=== PATIENT | male | born 1945 | race Caucasian/White ===

== ENCOUNTER 2016-11-25 19:04 | Observation (INO) | payer MEDICARE, OTHER ==
[~2016-11-25] VITALS: Ht 180.3 cm; Wt 82.8 kg
[2016-11-25 19:06] VITALS: BP 153/97; PULSE 69; RESP 16; O2SAT 99
--- NOTE | 2016-11-25 19:13 | ED.REPORT ---
HPI-Chest Pain 40 and Over Date of Service Nov 25, 2016 ED Provider: Viviana Joseph MD This is a 71 year old male with a history of [place] s/p cardiac stent placement presenting to the emergency department complaining of chest pain that began yesterday. Pt reports one episode of sudden onset chest pain while at rest yesterday that resolved within 6 minutes of taking 1 nitroglycerin. Pt experienced another episode today while getting out of bed, also resolved after 1 nitro. Described as left sided pain described as a "burning pressure," with radiation to the left arm at times. Pt had a stress test one week ago. Denies chest pain at this time. Denies cough, fever, chills, nausea, vomiting, abdominal pain, diaphoresis, or radiation of pain. Nursing Notes Stated Complaint: UNSTABLE ANGINA Chief Complaint: Chest Pain Nursing Notes Reviewed: Yes Allergies: Coded Allergies: No Known Allergies (Unverified , 11/25/16) General Time Seen by MD: 19:10 Chief Complaint Chest pain Hx Obtained From: Patient Arrived By: Walk-in Sudden in Onset?: Yes Onset Occurred: Yesterday Symptom Duration: Since onset Severity: Current: No pain currently Severity: Maximum: Moderate Pertinent Negative: Pt denies other symptoms Recent Healthcare: No recent hospitalization, Recent doctor visit Similar Sx Previous: No Past Medical History Past Medical History TX Past Surgical History Cardiac stents in 2013 Ambulatory Status Independent Review of Systems Constitutional: Denies: Chills, Fever Respiratory: Denies: Parox nocturnal dyspnea, Shortness of breath Cardiovascular: Reports: Chest pain GI: Denies: Abdominal pain, Constipation, Diarrhea, Nausea, Vomiting Musculoskeletal: Denies: Back pain Skin: Denies Diaphoresis Complete sys rev & neg: except as marked. Physical Exam Initial Vital Signs Vital Signs (First) Date Time Temp Pulse Resp B/P Pulse Ox O2 Delivery O2 Flow Rate FiO2 11/25/16 19:06 37.0 69 16 153/97 99 Room Air Initial VS: Reviewed Head / Eyes: Atraumatic, Normocephalic, PERRL ENT: Mucous membranes moist, Conjunctiva normal, No scleral icterus Neck: Supple, Non-tender, Full range of motion Extremities: Vascular intact, Neuro intact, No swelling, No tenderness Skin: Warm, Dry, No cyanosis Neurologic: Alert, Oriented, Nonfocal Psychiatric: Mood/affect normal, Behavior normal, Normal thought content General/Constitutional: Awake, Alert Respiratory / Chest: Breath sounds NL, Breath sounds = bilat, No respiratory distress, No rales, No rhonchi, No wheezing, No stridor, No chest tenderness Cardiovascular: Heart rate NL, No rubs Heart Sounds / Murmur: Positive: Diastolic murmur present. (III/) Abdomen: Soft, Non-tender, McBurney's non-tender, No guarding, No rebound, BS normoactive, No distention, No hernia, No palpable mass Interpretation & Diagnostics Interpretation & Diagnostics: chest x-ray IMPRESSION: No acute cardiopulmonary disease. Dictated by: Faizan Lobo M.D. on 11/25/2016 at 20:09 Approved by: Faizan Lobo M.D. on 11/25/2016 at 20:10 Lab Results Interpretation Result Diagram: 11/25/16192611/25/161926 Test 11/25/16 19:27 11/25/16 19:50 White Blood Count 16.6th/mm3 (3.8-10.1) Red Blood Count 4.42mil/mm3 (4.40-5.80) Hemoglobin 14.0g/dL (13.8-17.2) Hematocrit 39.9% (41.0-50.0) Mean Corpuscular Volume 90.3fL (81-100) Mean Corpuscular Hemoglobin 31.7pg (27.0-35.0) Mean Corpuscular Hemoglobin Concent 35.1% (32.0-37.0) Red Cell Distribution Width 12.5% (12.3-15.4) Platelet Count 136bil/L (150-400) Neutrophils (%) (Auto) 36.8% (40-74) Lymphocytes (%) (Auto) 55.5% (14-46) Monocytes (%) (Auto) 6.6% (4-12) Eosinophils (%) (Auto) 0.7% (0-5) Basophils (%) (Auto) 0.2% (0-3) Sodium Level 140mEq/L (134-144) Potassium Level 3.9mEq/L (3.5-5.2) Chloride Level 102mEq/L (97-108) Carbon Dioxide Level 24mmol/L (18-29) Blood Urea Nitrogen 20mg/dL (8-27) Creatinine 0.71mg/dL (0.76-1.27) Estimat Glomerular Filtration Rate 116mL/min (>59) Glucose Level 87mg/dL (60-99) Calcium Level 8.7mg/dL (8.5-10.1) Magnesium Level 2.1mg/dL (1.6-2.6) Total Bilirubin 0.5mg/dL (0.0-1.2) Aspartate Amino Transf (AST/SGOT) 28U/L (0-50) Alanine Aminotransferase (ALT/SGPT) 34U/L (0-44) Alkaline Phosphatase 53U/L (25-160) Troponin T < 0.010ug/L (0.0-0.011) Pro-B-Type Natriuretic Peptide 582.2pg/mL (0-376) Total Protein 6.7g/dL (6.4-8.4) Albumin 4.2g/dL (3.4-5.0) Hold Purple Top Tube Received (Received) Hold Blue Top Tube Received (Received) Hold Tracy Top Tube Received (Received) Hold Jones Top Tube Received (Received) ECG Interpretation ECG Interpretation: NSR at a rate of 67 T-wave inversion in AVR Time: 19:27 Interpreted by: ED physician Re-Eval/Medical Decision Med Decision/Clinical Course 71-year-old male with past medical history of TX status post stenting here with chest pain which was relieved by nitroglycerin both yesterday and today. Differential diagnosis includes but is not limited to ST elevation TX versus non -ST elevation TX versus esophageal spasm versus pneumonia versus pleural effusion versus PE versus aortic dissection. At this time, exam is not consistent with PE or aortic dissection, and I do not feel he requires workup for these diagnoses. Exam is most consistent with unstable angina. Initial troponin is negative. Initial labs are remarkable for leukocytosis. EKG does not show any signs of ischemia. Given patient's history of TX, I have admitted him to the hospital for formal ACS rule out. He is aware and amenable to plan. Consultation : Referral / Consult Name: Newton Rey MD Consulted With: Hospitalist Call Returned at: 20:29 Plastic Extruding Machine Operator: Accepts admit Counseled Regarding: Diagnosis, Lab results, Need for follow-up, Need for admission Discharge & Departure Primary Impression: Chest pain Chest pain type: unspecified Qualified Code: R07.9 - Chest pain, unspecified Disposition: ADMITTED TO HOSPITAL Discharge Condition All VS Reviewed: Yes Condition: Stable Referrals: Anna Cruz (PCP) Scribe Attestation Portions of this note were transcribed by Violet Deutsch. I, Dr. Joseph personally performed the history, physical exam and medical decision-making; I reviewed and confirmed the accuracy of the information in the transcribed note. Signed by: Violet Deutsch. 11/25/2016, 23:00. Viviana Joseph MD Nov 25, 2016 19:13 VIOLET DEUTSCH Nov 25, 2016 19:14
[2016-11-25 19:44] LABS: BASOPHILS % (AUTO) 0.2 % (0-3)
[2016-11-25 19:57] LABS: EOSINOPHILS % (AUTO) 0.7 % (0-5); MONOCYTES % (AUTO) 6.6 % (4-12); Mean Corpuscular Hemoglobin 31.7 pg (27.0-35.0); Mean Corpuscular Volume 90.3 fL (81-100); NEUTROPHILS % (AUTO) 36.8 % (40-74); Platelet Count 136 bil/L (150-400)
[2016-11-25 20:10] LABS: TROPONIN T < 0.010 ug/L (0.0-0.011)
[2016-11-25 20:12] LABS: Magnesium 2.1 mg/dL (1.6-2.6)
--- NOTE | 2016-11-25 20:15 | DRSVH ---
PROCEDURE: X-RAY CHEST ONE VIEW, PORTABLE ([id number]) INDICATIONS: 71 year-old male with chest pain. TECHNIQUE: One view of the chest was acquired. COMPARISON: None. FINDINGS: Surgical changes and devices: None. Lungs and pleura: No pleural effusions or pneumothorax. Lungs are clear. Mediastinum: Mediastinal contours appear normal. Heart size is normal given AP technique. Bones and chest wall: No suspicious bony lesions. Overlying soft tissues appear unremarkable. IMPRESSION: No acute cardiopulmonary disease. Dictated by: Faizan Lobo M.D. on 11/25/2016 at 20:09 Approved by: Faizan Lobo M.D. on 11/25/2016 at 20:10
[2016-11-25] MEDS ORDERED: Alum-Mag Hydrox-Simeth 30 mL Suspension PO PRN ×2 (21:30→22:05)
[2016-11-25] MEDS ORDERED: Ondansetron 2 mg/mL 2 mL Inj IVPUSH PRN ×2 (21:30→22:05)
[2016-11-25 21:54] VITALS: BP 128/71; PULSE 74; RESP 18; O2SAT 97
--- NOTE | 2016-11-25 22:03 | PCM.HPMED ---
Subjective Date of Service Nov 25, 2016 Primary Provider: Admitting Physician: Primary Care Physician: Anna Cruz Attending Physician: Admit Status: From the Emergency Department Chief Complaint: Chest pain History of Present Illness: This is a pleasant 71 Y/O M with a history of [place] s/p cardiac stent placement in [place] of 1st diagonal branch, hx of unstable angina at rest with nitro at home, hx of HTN on Carvedilol, and lisinopril, and hyperlipidemia on Atorvastatin, who presented to the ED with complaint of sudden onset recurring burning/ pressure 2-3 out of 10 chest pain that started about 3 weeks ago. This prompted patient to make appointment with franchise sales manager. Patient had exercise stress test done on 11/23/2016 in preparation for his scheduled visit visit with Dr. Nix on December 06 2016 which was found to be abnormal. Yesterday patient states he had recurrence of this chest pain at rest around noon and took one nitroglycerin with relief of pain after 6 minutes. Again today around 5:00 patient had same chest pain and took one nitroglycerin and pain went away after 5 minutes. Pain is located on the left pectoral region radiating to the left nipple and left arm. Patient states that he has not been diaphoretic but he was 3 weeks ago when just been started. Patient states he has increased stressors in his life of late and has recently moved here from [facility]. Patient reports sore throat for the past 2 days. Denies chest pain at this time. Denies cough, fever, chills, nausea, vomiting, abdominal pain, diaphoresis, or radiation of pain. Patient's former franchise sales manager was Dr. Carbone in [place]. Note the patient received nitroglycerin and aspirin and is currently in no pain. Vital signs in ED: Temperature 37.0, pulse 69, blood pressure 153/97, respiratory rate 16, oxygen 95% room air. Hemogram: WBCs 16.6, hemoglobin 14.0, hematocrit 39.9, platelet count 136, neutrophils 36.8, lymphocytes 55.5, Chemistry panel: Sodium 140, calcium 3.9, chloride 102, CO2 24, BUN 20, creatinine 0.71, glucose 87, make 0.1, calcium 8.7, pro BNP 582, troponin 0.010. Chest x-ray showed no acute cardiopulmonary process Review of Systems: A comprehensive review of systems was conducted and was negative except as mentioned in history of present illness. Allergies Coded Allergies: No Known Allergies (Unverified , 11/25/16) Home Medications Aspirin 81 mg daily Atorvastatin 40 mg daily Carvedilol 6.25 mg twice per day Lisinopril 5 mg daily Nitroglycerin 0.4 mg when necessary Pantoprazole 40 mg daily Jeison 10 mg drops per eyes for macular degeneration PMH History of WI in 2013 status post stent placement GERD Macular degeneration Hypertension Hyperlipidemia Surgical History Cardiac stent 2013 Family History Coronary artery disease in mother and father father at age 43 [place] Artery disease in grandfather who at age 43 from [place] History of cardiomyopathy in mother, grandmother, sister, brother, nephew Social History Hx Alcohol Use: Yes (drinks 2-3 beers per week each 5.1% by volume) Hx Substance Use: No Hx Tobacco Use: No Smoking Status: Never Smoker Exam Vital Signs Vital Sign - Last Date Time Temp Pulse Resp B/P Pulse Ox O2 Delivery O2 Flow Rate FiO2 11/25/16 19:06 37.0 69 16 153/97 99 Room Air Exam General: Acute alert oriented 3 no acute distress speaking in full sentences resting comfortably in bed HEENT: NC/AT, PERRLA, EOMI, neck supple, visible jugular venous pulse on the right, nontender no masses no thyromegaly Lungs: Clear bilaterally O cummings Heart: Regular rate and rhythm no murmur Abdomen: Soft nontender no organomegaly no rebound no guarding Extremities: Pulses symmetric bilaterally upper/lower extremity Neurologic: Cranial nerves II through XII grossly intact, Skin: Warm and dry Psychiatric: Mood and affect are congruent Lab and Diagnostics Result Diagram: 11/25/16192611/25/161926 X-Rays, CTs and MRIs Date of Service: 11/25/161910 PROCEDURE: X-RAY CHEST ONE VIEW, PORTABLE ([id number]) INDICATIONS: 71 year-old male with chest pain. TECHNIQUE: One view of the chest was acquired. COMPARISON: None. Surgical changes and devices: None. Lungs and pleura: No pleural effusions or pneumothorax. Lungs are clear. Mediastinum: Mediastinal contours appear normal. Heart size is normal given AP technique. Bones and chest wall: No suspicious bony lesions. Overlying soft tissues appear unremarkable. IMPRESSION: No acute cardiopulmonary disease. Dictated by: Faizan Lobo M.D. on 11/25/2016 at 20:09 Approved by: Faizan Lobo M.D. on 11/25/2016 at 20:10 12-lead ECG Normal sinus rhythm rate 67, with T-wave inversion in aVR Cardiac Echo Impressions PROCEDURE: 1 DAY TREADMILL STRESS TEST IMPRESSION: Abnormal study consistent with prior infarction and mild cipriano- infarct ischemia. Good exercise capacity overall with no ECG evidence of ischemia. 1) Mostly fixed defects in the apex and basal to mid lateral wall consistent with prior infarction and mild cipriano-infarct ischemia. Summed stress score is 2. 2) Mildly reduced systolic function with EF 45%. Mildly hypokinesis of the lateral wall and apex. 3) No ECG changes suggestive of ischemia. Occasional premature ventricular ectopy during rest, stress, and recovery. 4) Equivocal chest pain with exercise. 5) Excellent exercise capacity (10.1 METs achieved, KATHE -38%). Target heart rate achieved. Appropriate hemodynamic response to exercise. 6) No prior stress test available for comparison. Dictated by: Maximo Tyler M.D. on 11/23/2016 at 14:59 Approved by: Maximo Tyler M.D. on 11/23/2016 at 15:06 Dictated by: Maximo Tyler M.D. on 11/23/2016 at 15:44 Approved by: Maximo Tyler M.D. on 11/23/2016 at 15:44 CORRECTION: I corrected the wall motion in the Left ventricular function segment. Maximo Tyler MD Report status: Signed with Addenda REPORT#: [id number] Assessment & Plan This is a pleasant 71 Y/O M with a history of [place] s/p cardiac stent placement in [place] of 1st diagonal branch, hx of unstable angina at rest with nitro at home, hx of HTN on Carvedilol, and lisinopril, and hyperlipidemia on Atorvastatin, who presented to the ED with complaint of sudden onset recurring burning/ pressure 2-3 out of 10 chest pain that started occurring at rest about 3 weeks ago. Patient had exercise stress test done on 11/23/2016 was found to be abnormal. He was admitted for acute coronary syndrome rule out. # Acute chest pain, rule out acute coronary syndrome/W[place], Present on Admission, active -Patient has history of prior WI in 2013 status post stent. -His primary franchise sales manager is Dr. Guerra and has appointment on 12/06/2016 -Admitted for observation and further workup -EKG, normal sinus rhythm with a rate of 67, T-wave inversion in aVR -Troponin I 0.010 - BNP - Chest x-ray showed no acute cardiopulmonary process -Stress testing done on 11/23/2016 showed: Abnormal study consistent with prior infarction and mild cipriano-infarct ischemia. Good exercise capacity overall with no ECG evidence of ischemia. 1) Mostly fixed defects in the apex and basal to mid lateral wall consistent with prior infarction and mild cipriano-infarct ischemia. Summed stress score is 2. Mildly reduced systolic function with EF 45 %. Mildly hypokinesis of the lateral wall and apex. -Nothing by mouth tonight pending possible coronary cath in the a.m. -Troponin I X 3, CPK-MB -O2 Sats keep > 94% -IV fluids as needed -We will continue carvedilol 6.25 mg twice per day -Continue the Cipro 5 mg daily -Continue home Atorvastatin grams daily -Morphine for pain control -Nitro SL, Nitro [place], Nitro Paste (PRN) -Aspirin 325mg -Will hold off on starting Plavix given possible catheter procedure tomorrow -Will start Unfractionated Heparin IV if patient continues to complain of chest pain (Protamine for reversal if needed) -Continuous Cardiac Monitoring/BP monitoring -Cardio Consult (in AM) -Labs (Lipid Panel, CBC, CMP, PT/PTT/INR) # Leukocytosis, present on admission, chronicity unknown, active -WBCs 16.6, hemoglobin 14.0, hematocrit 39.9, platelet count 136, neutrophils 36.8, lymphocytes 55.5, #Thrombocytopenia, present on admission, chronicity unknown - Platelets 136 Chronic problems GERD -Continue pantoprazole 40 mg daily Macular degeneration -Continue Avastin 10 mg drops in eye daily Hypertension -Continue carvedilol 6.25 mg twice a day -Genu lisinopril as stated above Hyperlipidemia -Atorvastatin as stated above Disposition: Admitted to in patient service with expected length of stay greater than 2 days, secondary to severity of presenting symptoms, treatment plan, complexity of clinical work up, and risk of adverse events. PCP: Etta Jaime CODE STATUS: Full code CT/PE prophylaxis: SCDs and secondary to pending heart catheterization procedure in a.m. Pain Evaluation: Adequate Pain Control VTE Prophylaxis: Sub-Q Heparin (Unfractionated) Resuscitation Status: CPR: Attempt Resuscitation Attending Statement The patient was seen and examined together with Dr. Orozco on 11/25 and I agree with the history, exam and plan as outlined in the note above. Dougie Orozco DO Nov 25, 2016 21:02 Newton Rey MD Nov 26, 2016 02:50
[2016-11-25] MEDS ORDERED: Senna-Docusate 8.6-50 mg Tablet PO PRN (22:05)
[2016-11-25] MEDS ORDERED: Polyethylene Glycol (PEG) 17 Gm Powder PO PRN (22:05)
[2016-11-25] MEDS ORDERED: Atropine 1 mg/10 mL (Code) Syringe IVPUSH PRN (22:05)
[2016-11-25 23:04] LABS: Creatine Kinase 115 U/L (21-232)
[2016-11-25] MEDS ORDERED: LISI-571 PO (23:14)
[2016-11-25] MEDS ORDERED: ASPI81TA3 PO (23:14)
[2016-11-25] MEDS ORDERED: CARV6.252 PO (23:14)
[2016-11-25] MEDS ORDERED: NITR0.4T6 SL (23:14)
[2016-11-25] MEDS ORDERED: ATOR20TA PO (23:14)
[2016-11-25] MEDS ORDERED: PANT20TA2 PO (23:14)
[2016-11-25] MEDS: 0.9% Sodium Chloride 1,000 ML IV SCH (23:40)
[2016-11-25] MEDS: Sodium Chloride LOK Flush 10 mL Syringe IVFLUSH SCH ×2 (23:48→23:49)
[2016-11-26] VITALS (17 sets, daily range): BP systolic 102–132; BP diastolic 56–79; PULSE 51–117; RESP 8–20; O2SAT 93–99
[2016-11-26 01:31] LABS: APPEARANCE,URINE CLEAR (CLEAR,HAZY); COLOR,URINE YELLOW (YELLOW); OCCULT BLOOD,URINE NEGATIVE (NEGATIVE); PH,URINE 5.5 (5.0-8.0); UROBILINOGEN,URINE NORMAL (NORMAL)
[2016-11-26 02:36] LABS: BASOPHILS % (AUTO) 0.1 % (0-3); EOSINOPHILS % (AUTO) 1.2 % (0-5); MONOCYTES % (AUTO) 6.1 % (4-12); Mean Corpuscular Hemoglobin 31.7 pg (27.0-35.0); Mean Corpuscular Volume 90.6 fL (81-100); NEUTROPHILS % (AUTO) 29.2 % (40-74); Platelet Count 123 bil/L (150-400)
[2016-11-26 03:30] LABS: Creatine Kinase 83 U/L (21-232)
[2016-11-26 03:48] LABS: Magnesium 2.1 mg/dL (1.6-2.6)
--- NOTE | 2016-11-26 06:11 | NUR ---
Admit/Plan Patient admitted to floor from ED at 2145. Came to ED with complaints of chest pain and shortness of breath. Patient has history of NH and stent placement. Was given Asprin and Nitro in ED, which alleviated symptoms. Patient to be observed over night. Tele: SR 64 with occasional PVC's. Troponin negative. Patient NPO status pending plan. Sat's high 90's on RA. Has had no complaints of chest pain this shift. NS running at 80.
--- NOTE | 2016-11-26 06:28 | NUR ---
EKG preformed bedside at 0500
[2016-11-26] MEDS: 0.9% Sodium Chloride 1,000 ML IV SCH (10:34)
--- NOTE | 2016-11-26 11:13 | NUR ---
Social Work: Initial Assessment D: Per EMR review, pt is a 71 year old male admitted for chest pain resolved. Pt is Medicare with [employer]. PCP is Anna Cruz, SOL. NOK is Jose Shankar, paula son, . Advanced directives and DPOA ppw not completed- Information provided to pt by MERCHANDISER RETAIL REPRESENTATIVE. Readmit score not entered at this time. MERCHANDISER RETAIL REPRESENTATIVE met with pt at bedside. Sw role explained. See initial assessment. Pt lives in [facility] with his s/o. 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 Pt's is currently on hospice and requires total care including feeding. Pt is eager to get home to help care for her. Pt states that they live in a single-story ADA compliant home which they recently built. Pt and s/o moved to [facility] from [place] several months ago to be closer to s/o's family. Pt states he has no concerns about discharge home and that his s/o's daughter or son will transport him home when ready. MERCHANDISER RETAIL REPRESENTATIVE provided pt with senior resource guide for reference as he and s/o are new to [facility]. A: Pt who is I at baseline. P: Anticipate pt to discharge home via POV and no sw needs; MERCHANDISER RETAIL REPRESENTATIVE to continue to follow and assist if needs arise. BRETT Gomez Addendum: 11/26/16 at 1118 by FEROZ PINA SS Amended: Links added.
--- NOTE | 2016-11-26 13:21 | NUR ---
GEE signed, copy of FLYNN and copy of Medicare self administered drugs form given to pt.
[2016-11-26] MEDS ORDERED: Heparin 1,000 Units/500 mL NS Premix IV ONE (13:41)
[2016-11-26] MEDS ORDERED: Heparin 5,000 Units/500 mL NS Premix IV ONE (13:41)
[2016-11-26] MEDS ORDERED: Nitroglycerin 50,000 mcg/250 mL D5W Premix IV ONE (13:41)
[2016-11-26] MEDS ORDERED: Heparin 1,000 Unit/mL 10 mL Inj ONE (13:42)
--- NOTE | 2016-11-26 13:56 | NUR ---
off floor pt transported to shop laborer on bed by shop laborer RN. report given to KAREN
--- NOTE | 2016-11-26 14:06 | PCM.CHPCAR ---
Consult Subjective Date of service Nov 26, 2016 Date of admit Nov 25, 2016 at 21:07 Provider Requesting Consult Requesting Provider: Javi Mcdowell Primary Care Physician Primary Care Provider: Anna Cruz Chief Complaint Chest pain/pressure History of Present Illness Julio Salcido is a 71 year old male with past medical history significant for IN x 1 with subsequent stent placement in October of 2013, GERD, and hyperlipidemia who present with chest pain and pressure. Patient recently removed from [facility]. 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 He notes that over the past few months she has had frequent anginal symptoms. These episodes are normally brought on by emotional or physical stressors. Over the last month he has been having multiple episodes per week that have increased in intensity. Due to this he had called to make an appointment was scheduled cardiology. He was asked to have a stress test prior to appointment which she completed on 11/23/16 which was found to be abnormal. Patient's anginal symptoms are described as a left chest pain and pressure that occasionally will radiate to the left arm. It is sometimes associated with diaphoresis but he denies any shortness of breath, nausea, vomiting, palpitations. Patient has been compliant with medications and had a echocardiogram done approximately a year ago which she states was normal. EKG on admission showed nonspecific T-wave changes but no ST changes. Troponins have been negative thus far. Review of Systems Review of Systems A comprehensive review of systems was conducted and was negative except as mentioned in history of present illness. PMH Past Medical History # History of IN in 2013 # CAD status post stent placement in 2013 # Hypertension # Hyperlipidemia # GERD # Macular degeneration Past Surgical History Cardiac stent 2013 Bedside Blood Glucose: 118 Scheduled Aspirin Chew (Aspirin Chew) 81 Mg Chew 81 MG PO DAILY (Reported) Atorvastatin (Lipitor) 20 Mg Tablet 20 MG PO DAILY (Reported) Carvedilol (Carvedilol) 6.25 Mg Tablet 6.25 MG PO BID (Reported) Lisinopril (Lisinopril) 5 Mg Tablet 5 MG PO DAILY (Reported) Pantoprazole DR (Pantoprazole DR) 20 Mg Tablet.dr 20 MG PO DAILY (Reported) Miscellaneous Medications Nitroglycerin SL (Nitroglycerin SL) 0.4 Mg Tab.subl 0.4 MG SL (Reported) Current Inpatient Medications Current Medications Nitroglycerin 0.4 mg Q5MIN PRN SL Last administered on 11/25/16 19:41; Admin Dose 0.4 MG; Start 11/25/16 at 19:15; Stop 11/25/16 at 22:23; Status DC Al Hydrox/Mg Hydrox/Simethicone 30 ml Q6 PRN PO; Start 11/25/16 at 21:30; Status Cancel Ondansetron HCl Dose range: 4 mg to 8 mg Q4H PRN IVPUSH; Start 11/25/16 at 21:30 ; Status Cancel Acetaminophen 975 mg Q6H PRN PO; Start 11/25/16 at 21:30; Status Cancel Sodium Chloride 10 ml 10 ml SRAVANTHI IVFLUSH Last administered on 11/25/16 23:49; Admin Dose 10 ML; Start 11/26/16 at 00:30 Sodium Chloride 1,000 ml @ 80 mls/hr [id number] IV Last administered on 11/25/16 23:40; Admin Dose 80 MLS/HR; Start 11/25/16 at 22:04 Aspirin 325 mg DAILY PO; Start 11/26/16 at 08:30 Al Hydrox/Mg Hydrox/Simethicone 30 ml Q6H PRN PO; Start 11/25/16 at 22:05 Ondansetron HCl 4-8 mg prn nausea Q4H PRN IVPUSH; Start 11/25/16 at 22:05 Senna 1 tablet BID PRN PO; Start 11/25/16 at 22:05 Polyethylene Glycol 17 gm DAILY PRN PO; Start 11/25/16 at 22:05 Acetaminophen 325 mg Q6H PRN PO Last administered on 11/26/16 09:25; Admin Dose 325 MG; Start 11/25/16 at 22:05 Nitroglycerin 0.4 mg Q5MIN PRN SL; Start 11/25/16 at 22:05 Morphine Sulfate 1-5 mg prn pain not relie... Q5M PRN IVPUSH; Start 11/25/16 at 22:05 Atropine Sulfate PRN Q5MIN PRN IVPUSH; Start 11/25/16 at 22:05 Allergies: Coded Allergies: No Known Allergies (Unverified , 11/25/16) Family History Family History Father and paternal grandfather at age 43 from [place] Mother, maternal grandmother, sister, brother, and nephew have cardiomyopathy Social History Hx Alcohol Use: NoHx Substance Use: NoHx Tobacco Use: No Smoking Status: Never Smoker Exam Vital Signs Vital Sign - Last Date Time Temp Pulse Resp B/P Pulse Ox O2 Delivery O2 Flow Rate FiO2 11/26/16 08:36 36.7 65 20 129/79 97 Room Air Intake and Output 11/25/16 11/25/16 11/26/16 Cumulative From/Thru 14:59 22:59 06:59 11/25/16 19:06 - 11/26/16 06:22 Intake Total 528 ml 528 ml Balance 528 ml 528 ml IV Total 528 ml 528 ml Objective General: No acute distress, well-developed, well-nourished, appropriately interactive HEENT: Normocephalic, atraumatic. External ears without defect. Pupils equal, round, and reactive to light and accommodation. Anicteric sclerae, moist conjunctivae, and no lid lag. Oropharynx free of erythema and cobble stoning with moist mucosa. Neck: Supple with full range of motion. No jugular venous distension. No bruits. No lymphadenopathy or thyromegaly. Cardiovascular: Regular rate and rhythm with no murmurs, rubs, or gallops appreciated Pulmonary: Clear to auscultation bilaterally with no crackles, wheezes, or rhonchi. Normal respiratory effort with no use of accessory muscles. Abdomen: Bowel tones present. Soft, nontender, nondistended. No hepatosplenomegaly or masses appreciated. Extremities: No clubbing, cyanosis, edema, or lymphadenopathy appreciated. Skin: Normal temperature, turgor, and texture; no rash, ulcers, or subcutaneous nodules appreciated. Neurological: Cranial nerves grossly intact. Normal muscle strength, tone, and bulk. Reflexes, coordination, and sensory function within normal limits. No known gait impairment. Psychiatric: Normal mood and affect. Alert and oriented to person, place, and time. Lab and Diagnostics Labs Troponin <0.010 and 0.010 since admission Result Diagram: 11/26/1621911/26/16219 X-Rays, CTs and MRIs X-RAY CHEST ONE VIEW, PORTABLE IMPRESSION: No acute cardiopulmonary disease. Dictated by: Faizan Lobo M.D. on 11/25/2016 at 20:09 Approved by: Faizan Lobo M.D. on 11/25/2016 at 20:10 12-lead ECG NSR with nonspecific T wave changes Assessment & Plan Assessment Julio Salcido is a 71 year old male with past medical history significant for IN x 1 with subsequent stent placement in October of 2013, GERD, and hyperlipidemia who present with chest pain and pressure. # Unstable angina: Patient presents with typical chest pain that has become more frequent over the last month. Chest pain resolved with nitro. Troponins have been negative since admission. Risk factors include prior IN with stent in 10/2013, family history, and hyperlipidemia. Stress test on 11/23/16 was abnormal with partially reversible in lateral and apical howell consistent with prior infarction with mild ischeima. Recommend to proceed with cardiac catheterization today to further evaluate. Plan: - Aspirin 81 mg daily. - Atorvastatin 40 mg daily. - Carvedilol 6.25 mg BID. - Lisinopril 5 mg daily. - Cardiac catheterization today. # CAD s/p prior diagonal artery stent: obtaining records from [place], [place] to determine location of stent # Hyperlipidemia: treatment as above. # Hypertension: treatment as above. # GERD: well controlled on pantoprazole at home. - Continue pantoprazole. Pain Evaluation: Adequate Pain Control VTE Mechanical Devices: Intermittant Pneumatic CD Resuscitation Status: CPR: Attempt Resuscitation Attending Statement I saw, examined, and evaluated the patient with Dr. Dante Noland on 11/26/2016 and agree with the note as above. DANTE NOLAND DO Nov 26, 2016 11:19 Maximo Tyler MD Nov 26, 2016 15:31
[2016-11-26] MEDS ORDERED: fentaNYL-PF 50 mCg/mL 2 mL Inj ONE (14:16)
[2016-11-26] MEDS ORDERED: Adenosine Inj 20 ML IV ONE (14:45)
[2016-11-26] MEDS ORDERED: 0.9% Sodium Chloride 50 ML ONE (14:46)
[2016-11-26] MEDS ORDERED: 0.9% Sodium Chloride 1,000 ML IV PRN (15:27)
[2016-11-26] MEDS ORDERED: 0.9% Sodium Chloride 250 ML IV PRN (15:27)
[2016-11-26] MEDS ORDERED: Atropine 1 mg/10 mL (Code) Syringe IVPUSH PRN (15:30)
--- NOTE | 2016-11-26 15:38 | PCM.CVCATH ---
Cardiac Cath Report Date of Service Nov 26, 2016 Primary Indication Unstable angina, abnormal stress test Procedure coronary angiography, left heart cath Vascular Access Right radial artery using 6 Fr sheath, closure with TR band. Diagnostic Catheters Left main: [place] 4.5, 5 Fr RCA: [place] 4.5, 5 Fr Procedure Details Coronary angiography details: The patient was brought to the cardiac catheterization lab in the fasting state. Patient was laid supine on the cardiac catheterization table and the right forearm was prepped and draped in the usual sterile fashion. One percent Xylocaine was infiltrated over the right radial artery. Vascular access was then achieved under ultrasound guidance. Guide wire was used to advance the catheter through the sheath and up into aortic sinuses. After coronary angiography was completed, guide wire was advanced through the catheter ahead of the tip of the catheter and the guide wire along with the catheter were pulled together out of the sheath. Medications/Fluoro Time Medications/contrast/fluoro administered: see interventional cardiology report Findings 1) Coronary angiography: Right dominance a. Left main is angiographically normal b. LAD is normal caliber with 60% tubular stenosis around first large caliber diagonal artery. The large caliber diagonal has a proximal patent stent with mild in-stent restenosis. c. LCx is normal caliber with minimal luminal irregularities d. RCA is normal caliber with mild luminal irregularities 2) Left Heart catheterization: a. LVEDP is mildly elevated at 20 mmHg. b. No significant transaortic gradient on catheter pull-back. Complications There were no periprocedural complications identified. Summary Moderate disease in the LAD. Likely non-significant but I referred the patient to interventional cardiology for FFR of the LAD. Unfortunately, the guide catheter could not engage the left main properly and the FFR could not be done. Recommendations Aggressive medical management of coronary artery disease (aspirin, high intensity statin, beta-blockers, EDWINA-I, and isosorbide mononitrate) Maximo Tyler MD Nov 26, 2016 15:38
--- NOTE | 2016-11-26 15:44 | CS94 ---
[address] [address] DIAGNOSTIC CARDIAC CATHETERIZATION PATIENT: IRMA SHEIKH : 1945 MR#: [id number] ADMIT: 11/25/2016 JOB ID: [id number] SERVICE DATE: 11/26/2016 PATIENT PROFILE: The patient is a 71 years old male who presented with chest discomfort. PROCEDURE: Unsuccessful attempt at fractional flow reserve to the left anterior descending. VASCULAR CLOSURE DEVICE: None. COMPLICATIONS: None. METHOD: Following diagnostic coronary angiogram performed by Dr. Tyler, the patient was informed about FFR procedure. Attempts to engage the left coronary ostium with JL4, JL5, AL1, CLS4 and IL4 guides were unsuccessful. The procedure was terminated. Following sheath removal, hemostasis was achieved by manual compression. The patient tolerated procedure well. He was transferred to [facility] in good condition. RESULTS: Unsuccessful attempt at fractional flow reserve from the radial approach due to unable to find a guide that properly seated into the left coronary ostium. SHERMAN
[2016-11-26] MEDS: Sodium Chloride LOK Flush 10 mL Syringe IVFLUSH SCH ×2 (16:30→23:56)
--- NOTE | 2016-11-26 17:24 | PCM.PNMED ---
Subjective Date of Service Nov 26, 2016 Subjective denies any new issues/complaints. no further CP since admit Exam Vital Signs Vital Sign - Last Date Time Temp Pulse Resp B/P Pulse Ox O2 Delivery O2 Flow Rate FiO2 11/26/16 16:30 60 16 107/56 98 Room Air 11/26/16 13:25 36.6 Intake and Output 11/25/16 11/25/16 11/26/16 Cumulative From/Thru 15:00 23:00 07:00 11/25/16 19:06 - 11/26/16 06:22 Intake Total 528 ml 528 ml Balance 528 ml 528 ml IV Total 528 ml 528 ml General: Alert, Cooperative, No Acute Distress Eyes: Scleral Anicteric Mouth: Mucous Membr Moist/[place] Neck: Supple Chest & Lungs: Chest Wall Normal, Clear to auscultation & percussion Cardiovascular: Regular Rate/Rhythm Pulses: NL carotid, radial, femoral, DP, PT Abdomen: Non-tender, Non-distended, Normoactive bowel tones, Soft Extremities: No cyanosis/clubbing/edma bilat Neurological: Grossly Neurologically Intact, Normal Speech IVs and Medications Medications Reviewed: Medications were reviewed in detail Lab and Diagnostics Result Diagram: 11/26/1621911/26/16219 X-Rays, CTs and MRIs Date of Service: 11/25/161910 PROCEDURE: X-RAY CHEST ONE VIEW, PORTABLE ([id number]) INDICATIONS: 71 year-old male with chest pain. TECHNIQUE: One view of the chest was acquired. COMPARISON: None. Surgical changes and devices: None. Lungs and pleura: No pleural effusions or pneumothorax. Lungs are clear. Mediastinum: Mediastinal contours appear normal. Heart size is normal given AP technique. Bones and chest wall: No suspicious bony lesions. Overlying soft tissues appear unremarkable. IMPRESSION: No acute cardiopulmonary disease. Dictated by: Faizan Lobo M.D. on 11/25/2016 at 20:09 Approved by: Faizan Lobo M.D. on 11/25/2016 at 20:10 12-lead ECG Normal sinus rhythm rate 67, with T-wave inversion in aVR Cardiac Echo Impressions PROCEDURE: 1 DAY TREADMILL STRESS TEST IMPRESSION: Abnormal study consistent with prior infarction and mild cipriano- infarct ischemia. Good exercise capacity overall with no ECG evidence of ischemia. 1) Mostly fixed defects in the apex and basal to mid lateral wall consistent with prior infarction and mild cipriano-infarct ischemia. Summed stress score is 2. 2) Mildly reduced systolic function with EF 45%. Mildly hypokinesis of the lateral wall and apex. 3) No ECG changes suggestive of ischemia. Occasional premature ventricular ectopy during rest, stress, and recovery. 4) Equivocal chest pain with exercise. 5) Excellent exercise capacity (10.1 METs achieved, KATHE -38%). Target heart rate achieved. Appropriate hemodynamic response to exercise. 6) No prior stress test available for comparison. Dictated by: Maximo Tyler M.D. on 11/23/2016 at 14:59 Approved by: Maximo Tyler M.D. on 11/23/2016 at 15:06 Dictated by: Maximo Tyler M.D. on 11/23/2016 at 15:44 Approved by: Maximo Tyler M.D. on 11/23/2016 at 15:44 CORRECTION: I corrected the wall motion in the Left ventricular function segment. Maximo Tyler MD Report status: Signed with Addenda REPORT#: [id number] Assessment & Plan 71 Y/O M with a history of [place] s/p cardiac stent placement in [place] of 1st diagonal branch, hx of unstable angina at rest with nitro at home, hx of HTN on Carvedilol, and lisinopril, and hyperlipidemia on Atorvastatin, who presented to the ED with complaint of sudden onset recurring burning/pressure 2-3 out of 10 chest pain that started occurring at rest about 3 weeks ago. Patient had exercise stress test done on 11/23/2016 was found to be abnormal. # Acute chest pain, Present on Admission. Resolved - ruled out for acute coronary syndrome/DE with negative cardiac enzymes - appreciate cardiology consult. will f/u w/ recs - post cardiac cath 11/26/16 with finding of: "Moderate disease in the LAD. Likely non-significant but I referred the patient to interventional cardiology for FFR of the LAD. 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 - no Abx for now - f/u to ensure resolution #Thrombocytopenia, present on admission, chronicity unknown. stable. - f/u Chronic problems # GERD -Continue pantoprazole 40 mg daily # Macular degeneration -Continue Avastin 10 mg drops in eye daily # Hypertension -Continue current meds # Hyperlipidemia - Atorvastatin as stated above Dispo: likely home in am if continue to remain stable and asymptomatic post cath today VTE Prophylaxis: Sub-Q Heparin (Unfractionated) VTE Mechanical Devices: Intermittant Pneumatic CD Resuscitation Status: CPR: Attempt Resuscitation Time spent 35 min Javi Mcdowell Nov 26, 2016 17:24
--- NOTE | 2016-11-26 19:16 | NUR ---
[facility] POST HEART CATH/TRANSFER PT WAS RECEIVED FROM BEHAVIORAL HEALTH THERAPIST AT 1550. RIGHT WRIST TR BAND HAS REMAINED FREE FROM BLEEDING OR HEMATOMA. PT IS AWARE OF RESTRICTIONS TO USE OF RIGHT HAND/WRIST. PT IS TAKING FLUIDS AND MEAL WITHOUT DIFFICULTY AND DENIES ANY PAIN. VSS. REPORT CALLED TO KARINA Batista RN AND PT AND HIS NURSING CARE WERE TRANSFERRED BACK TO ROOM 3003 AT 1905. BEDSIDE RN TO RN HANDOFF WAS DONE AND TELE PLACED ON PT.
[2016-11-27] VITALS: PULSE 70
[2016-11-27 03:05] VITALS: PULSE 61
[2016-11-27 05:22] VITALS: PULSE 64
[2016-11-27 05:59] LABS: Mean Corpuscular Volume 91.3 fL (81-100)
--- NOTE | 2016-11-27 06:00 | NUR ---
Overnight Patient slept most of the night. Did have complaints of a headache that decreased with Tylenol and patient was able to go back to sleep. No complaints of chest pain. 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 Strong bilateral radial pulses.
[2016-11-27 06:20] VITALS: BP 129/66; PULSE 63; RESP 18; O2SAT 96
[2016-11-27] MEDS ORDERED: Isosorbide Mononitrate 30 mg ER24 Tablet PO SCH (07:30)
[2016-11-27] MEDS ORDERED: Pantoprazole 20 mg ER24 Tablet PO SCH (08:30)
[2016-11-27 08:39] VITALS: BP 122/72; PULSE 70; RESP 20; O2SAT 96
[2016-11-27 08:47] VITALS: PULSE 76
[2016-11-27] MEDS: Sodium Chloride LOK Flush 10 mL Syringe IVFLUSH SCH (08:58)
[2016-11-27] MEDS ORDERED: ATOR40TA69 PO (09:55)
[2016-11-27] MEDS ORDERED: ISOS60TA2 PO (09:55)
--- NOTE | 2016-11-27 10:02 | PCM.DIMED ---
Discharge Instructions Date of Service Nov 27, 2016 Dates of Hospitalization Nov 25, 2016 at 21:07 Discharge Diagnosis Discharge Diagnosis # Acute chest pain, Present on Admission. Resolved - ruled out for acute coronary syndrome/MO with negative cardiac enzymes - post cardiac cath 11/26/16 with finding of: "Moderate disease in the LAD. Likely non-significant but referred the patient to interventional cardiology for Fractional flow reserve (FFR) of the LAD. Unfortunately, the guide catheter could not engage the left main properly and the FFR could not be done. " # Leukocytosis, present on admission, chronicity unknown, ongoing - no sign of active infection. - further followup with primary care provider is recommended to ensure resolution # Mild thrombocytopenia, present on admission, chronicity unknown. stable. Chronic problems: # GERD # Macular degeneration # Hypertension # Hyperlipidemia Diet Low fat, Low Sodium, Heart Healthy Activity No restrictions Call your provider Fever or Chills, Shortness of breath, Bleeding, Chest pain Patient Instructions Seek immediate medial attention if any new or worsening signs or symptoms occur. Follow-up plan 1. Followup with primary care provider in 3-7 days 2. Followup with your abrasive coating machine operator, Dr. Guerra, on 12/06/2016 as previously scheduled. Follow-up Provider: Anna Cruz Provider: Pablo Reynolds MD, Masoud Nov 27, 2016 10:02
--- NOTE | 2016-11-27 11:59 | NUR ---
Discharge Pt d/c home with friend at 1128. IV x2 d/c prior to leaving. Tele taken off. D/c info discussed with pt, all questions answered. All personal belongings left with pt. VSS.
--- NOTE | 2016-11-27 17:34 | PCM.DC.MED ---
Discharge Summary Date of Service Nov 27, 2016 Dates of Hospitalization Date of Hospital Admission Nov 25, 2016 at 21:07 Date of Discharge: Nov 27, 2016 Providers: Admitting Physician: Newton Rey MD Primary Care Physician: Anna Cruz Attending Physician: Newton Rey MD Diagnosis at Time of Discharge Diagnosis at Time of Discharge # Acute chest pain, Present on Admission. Resolved - ruled out for acute coronary syndrome/RI with negative cardiac enzymes - post cardiac cath 11/26/16 with finding of: "Moderate disease in the LAD. Likely non-significant but referred the patient to interventional cardiology for Fractional flow reserve (FFR) of the LAD. Unfortunately, the guide catheter could not engage the left main properly and the FFR could not be done. " # Leukocytosis, present on admission, chronicity unknown, ongoing - no sign of active infection. - further followup with primary care provider is recommended to ensure resolution # Mild thrombocytopenia, present on admission, chronicity unknown. stable. Chronic problems: # GERD # Macular degeneration # Hypertension # Hyperlipidemia Consultations 1. Cardiology Procedures XRay, CTs & MRIs Date of Service: 11/25/161910 PROCEDURE: X-RAY CHEST ONE VIEW, PORTABLE ([id number]) INDICATIONS: 71 year-old male with chest pain. TECHNIQUE: One view of the chest was acquired. COMPARISON: None. Surgical changes and devices: None. Lungs and pleura: No pleural effusions or pneumothorax. Lungs are clear. Mediastinum: Mediastinal contours appear normal. Heart size is normal given AP technique. Bones and chest wall: No suspicious bony lesions. Overlying soft tissues appear unremarkable. IMPRESSION: No acute cardiopulmonary disease. Dictated by: Faizan Lobo M.D. on 11/25/2016 at 20:09 Approved by: Faizan Lobo M.D. on 11/25/2016 at 20:10 ECG 12 Lead Normal sinus rhythm rate 67, with T-wave inversion in aVR Cardiac Echo Impression PROCEDURE: 1 DAY TREADMILL STRESS TEST IMPRESSION: Abnormal study consistent with prior infarction and mild cipriano- infarct ischemia. Good exercise capacity overall with no ECG evidence of ischemia. 1) Mostly fixed defects in the apex and basal to mid lateral wall consistent with prior infarction and mild cipriano-infarct ischemia. Summed stress score is 2. 2) Mildly reduced systolic function with EF 45%. Mildly hypokinesis of the lateral wall and apex. 3) No ECG changes suggestive of ischemia. Occasional premature ventricular ectopy during rest, stress, and recovery. 4) Equivocal chest pain with exercise. 5) Excellent exercise capacity (10.1 METs achieved, KATHE -38%). Target heart rate achieved. Appropriate hemodynamic response to exercise. 6) No prior stress test available for comparison. Dictated by: Maximo Tyler M.D. on 11/23/2016 at 14:59 Approved by: Maximo Tyler M.D. on 11/23/2016 at 15:06 Dictated by: Maximo Tyler M.D. on 11/23/2016 at 15:44 Approved by: Maximo Tyler M.D. on 11/23/2016 at 15:44 CORRECTION: I corrected the wall motion in the Left ventricular function segment. Maximo Tyler MD Report status: Signed with Addenda REPORT#: [id number] Invasive Procedures Cardiac Cath Report Date of Service Nov 26, 2016 Primary Indication Unstable angina, abnormal stress test Procedure coronary angiography, left heart cath Vascular Access Right radial artery using 6 Fr sheath, closure with TR band. Diagnostic Catheters Left main: [place] 4.5, 5 Fr RCA: [place] 4.5, 5 Fr Procedure Details Coronary angiography details: The patient was brought to the cardiac catheterization lab in the fasting state. Patient was laid supine on the cardiac catheterization table and the right forearm was prepped and draped in the usual sterile fashion. One percent Xylocaine was infiltrated over the right radial artery. Vascular access was then achieved under ultrasound guidance. Guide wire was used to advance the catheter through the sheath and up into aortic sinuses. After coronary angiography was completed, guide wire was advanced through the catheter ahead of the tip of the catheter and the guide wire along with the catheter were pulled together out of the sheath. Medications/Fluoro Time Medications/contrast/fluoro administered: see interventional cardiology report Findings 1) Coronary angiography: Right dominance a. Left main is angiographically normal b. LAD is normal caliber with 60% tubular stenosis around first large caliber diagonal artery. The large caliber diagonal has a proximal patent stent with mild in-stent restenosis. c. LCx is normal caliber with minimal luminal irregularities d. RCA is normal caliber with mild luminal irregularities 2) Left Heart catheterization: a. LVEDP is mildly elevated at 20 mmHg. b. No significant transaortic gradient on catheter pull-back. Complications There were no periprocedural complications identified. Summary Moderate disease in the LAD. Likely non-significant but I referred the patient to interventional cardiology for FFR of the LAD. Unfortunately, the guide catheter could not engage the left main properly and the FFR could not be done. Recommendations Aggressive medical management of coronary artery disease (aspirin, high intensity statin, beta-blockers, EDWINA-I, and isosorbide mononitrate) Maximo Tyler MD Nov 26, 2016 15:38 <Electronically signed by Maximo Tyler MD> 11/26/16 1538 Report status: Signed Transcribed by: LOVE 11/26/16 1538 REPORT#: [id number] Brief History As noted in H&P by Dr. 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 Patient recently removed from [facility]. 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 He notes that over the past few months she has had frequent anginal symptoms. These episodes are normally brought on by emotional or physical stressors. Over the last month he has been having multiple episodes per week that have increased in intensity. Due to this he had called to make an appointment was scheduled cardiology. He was asked to have a stress test prior to appointment which she completed on 11/23/16 which was found to be abnormal. Patient's anginal symptoms are described as a left chest pain and pressure that occasionally will radiate to the left arm. It is sometimes associated with diaphoresis but he denies any shortness of breath, nausea, vomiting, palpitations. Patient has been compliant with medications and had a echocardiogram done approximately a year ago which she states was normal. EKG on admission showed nonspecific T-wave changes but no ST changes. Troponins have been negative thus far. Hospital Course # Acute chest pain, Present on Admission. Resolved - ruled out for acute coronary syndrome/RI with negative cardiac enzymes - appreciate cardiology consult. will f/u w/ recs - post cardiac cath 11/26/16 with finding of: "Moderate disease in the LAD. Likely non-significant but I referred the patient to interventional cardiology for FFR of the LAD. 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 - no Abx for now - f/u with PCP to ensure resolution #Thrombocytopenia, present on admission, chronicity unknown. stable. - f/u Chronic problems # GERD -Continue pantoprazole 40 mg daily # Macular degeneration -Continue Avastin 10 mg drops in eye daily # Hypertension -Continue current meds # Hyperlipidemia - Atorvastatin as stated above by day of d/c lungs CTA bilat. patient remains CP free. Exam Vital Signs (Last) Date Time Temp Pulse Resp B/P Pulse Ox O2 Delivery O2 Flow Rate FiO2 11/27/16 08:47 76 11/27/16 08:39 36.9 20 122/72 96 Room Air Test 11/25/16 19:27 11/25/16 19:50 11/26/16 01:13 11/26/16 02:20 Hemoglobin A1c 5.3% (4.8-5.6) Total Bilirubin 0.5mg/dL (0.0-1.2) Aspartate Amino Transf (AST/SGOT) 28U/L (0-50) Alanine Aminotransferase (ALT/SGPT) 34U/L (0-44) Alkaline Phosphatase 53U/L (25-160) Pro-B-Type Natriuretic Peptide 582.2pg/mL (0-376) Total Protein 6.7g/dL (6.4-8.4) Albumin 4.2g/dL (3.4-5.0) Thyroid Stimulating Hormone (TSH) 2.420uIU/mL (0.450-4.500) Hold Purple Top Tube Received (Received) Hold Blue Top Tube Received (Received) Hold [place] Top Tube Received (Received) Hold [place] Top Tube Received (Received) Urine Color Yellow (YELLOW) Urine Appearance Clear (CLEAR,HAZY) Urine pH 5.5 (5.0-8.0) Urine Specific [place] 1.020 (1.003-1.035) Urine Protein Negativemg/dL (NEG,TRACE) Urine Glucose (UA) Negativemg/dL (NEGATIVE) Urine Ketones Negativemg/dL (NEGATIVE) Urine Occult Blood Negative (NEGATIVE) Urine Nitrite Negative (NEGATIVE) Urine Bilirubin Negative (NEGATIVE) Urine Urobilinogen Normalmg/dL (NORMAL) Urine Leukocyte Esterase Negative (NEGATIVE) Urine RBC 0-2/hpf (0-2) Urine WBC 0-5/hpf (0-5) Urine Epithelial Cells Occasional/hpf (NONE-MOD) Urine Crystals None seen (NONE SEEN) Urine Bacteria None/hpf (NONE-FEW) Urine Hyaline Casts Rare/lpf (NONE) Urine Granular Casts None seen (NONE SEEN) Urine Waxy Casts None seen (NONE SEEN) Urine Red Blood Cell Casts None seen (NONE SEEN) Urine White Blood Cell Casts None seen (NONE SEEN) Urine Mucus Present (None Seen) Urine Trichomonas None seen (NONE SEEN) Urine Yeast None (NONE SEEN) Urinalysis Comment None Urine Culture Reflexed Not indicated Neutrophils (%) (Auto) 29.2% (40-74) Lymphocytes (%) (Auto) 63.3% (14-46) Monocytes (%) (Auto) 6.1% (4-12) Eosinophils (%) (Auto) 1.2% (0-5) Basophils (%) (Auto) 0.1% (0-3) Magnesium Level 2.1mg/dL (1.6-2.6) Total Creatine Kinase 83U/L (21-232) Creatine Kinase MB 3.2ng/mL (0.0-10.4) Creatine Kinase MB % % (0.0-5.0) Troponin T 0.010ug/L (0.0-0.011) Triglycerides Level 79mg/dL (0-149) Cholesterol Level 116mg/dL (100-199) LDL Cholesterol, Calculated 53.200mg/dL (0-99) VLDL Cholesterol 15.800mg/dL HDL Cholesterol 47mg/dL (>39) Cholesterol/HDL Ratio 2.47 (0.0-4.4) Test 11/27/16 05:10 White Blood Count 14.8th/mm3 (3.8-10.1) Red Blood Count 4.26mil/mm3 (4.40-5.80) Hemoglobin 13.2g/dL (13.8-17.2) Hematocrit 38.9% (41.0-50.0) Mean Corpuscular Volume 91.3fL (81-100) Mean Corpuscular Hemoglobin 31.0pg (27.0-35.0) Mean Corpuscular Hemoglobin Concent 33.9% (32.0-37.0) Red Cell Distribution Width 12.6% (12.3-15.4) Platelet Count 122bil/L (150-400) Sodium Level 142mEq/L (134-144) Potassium Level 4.0mEq/L (3.5-5.2) Chloride Level 107mEq/L (97-108) Carbon Dioxide Level 25mmol/L (18-29) Blood Urea Nitrogen 11mg/dL (8-27) Creatinine 0.57mg/dL (0.76-1.27) Estimat Glomerular Filtration Rate 150mL/min (>59) Glucose Level 99mg/dL (60-99) Calcium Level 8.2mg/dL (8.5-10.1) Discharge Medications Discharge Medications Aspirin Chew (Aspirin Chew) 81 Mg Chew 81 MG PO DAILY (Reported) Atorvastatin Calcium (Atorvastatin Calcium) 40 Mg Tablet 40 MG PO HS Prescribed by: JAVI HERNANDEZ MD Carvedilol (Carvedilol) 6.25 Mg Tablet 6.25 MG PO BID (Reported) Isosorbide MN ER (Isosorbide MN ER) 60 Mg Tab.er.24h 30-60 MG PO DAILY Take half a tablet (30 mg) for 7 days and then take one tablet (60 mg) after that Prescribed by: JAVI HERNANDEZ MD Lisinopril (Lisinopril) 5 Mg Tablet 5 MG PO DAILY (Reported) Pantoprazole DR (Pantoprazole DR) 20 Mg Tablet.dr 20 MG PO DAILY (Reported) Miscellaneous Medications Nitroglycerin SL (Nitroglycerin SL) 0.4 Mg Tab.subl 0.4 MG SL (Reported) Followup Plan Disposition: Home Follow-up plan 1. Followup with primary care provider in 3-7 days 2. Followup with your mine laborer, Dr. Guerra, on 12/06/2016 as previously scheduled. Discharge Diet: Low fat, Low Sodium, Heart Healthy Discharge Activity: No restrictions Patient Instructions Seek immediate medial attention if any new or worsening signs or symptoms occur. Follow-up Provider: Anna Cruz PAC Provider: Pablo Reynolds MD Time spent 30 min copies to: Anna Cruz PAC; Pablo Reynolds [email or web address] Nov 27, 2016 17:34
[2016-11-28] MEDS ORDERED: Isosorbide Mononitrate 60 mg ER24 Tablet PO SCH (07:30)
== END 2016-11-27 11:24 | disposition home or self-care (01) ==
LOC: SED 19:04 → MPC 21:07
PROVIDERS: ADMIT Hospitalist; ATTEND Hospitalist
DX: R07.9 Chest pain, unspecified (principal); I25.10 Atherosclerotic heart disease of native coronary artery without angina pectoris; I10 Essential (primary) hypertension; Z95.5 Presence of coronary angioplasty implant and graft; D72.829 Elevated white blood cell count, unspecified; D69.6 Thrombocytopenia, unspecified; E78.5 Hyperlipidemia, unspecified; I25.2 Old myocardial infarction; H35.30 Unspecified macular degeneration; Z79.82 Long term (current) use of aspirin
CPT/HCPCS: 36415; 71010; 80048; 80053; 80061; 81000; 82550; 82553; 82948; 83036; 83735; 83880; 84443; 84484; 85025; 85027; 93005; 93458; 99152; 99153; 99285; C1769; C1887; C1894; G0378; J0153; J1644; J2250; J3010; J7030